=== PATIENT | male | born 2000 | race Caucasian/White ===

== ENCOUNTER 2020-10-17 08:42 | Emergency (ER) | payer OTHER, SELFPAY ==
[2020-10-17 08:53] VITALS: BP 156/87; PULSE 61; RESP 16; TEMP 36.5; O2SAT 100; BMI 27.3
--- NOTE | 2020-10-17 09:00 | ED.BACK ---
HPI - Back Pain/Injury General Chief Complaint: Back Pain/Injury Stated Complaint: Bruised ribs-pain/low back issue Time Seen by Provider: 10/17/20 08:50 Source: patient Limitations: no limitations History of Present Illness HPI Narrative: Patient is an otherwise healthy 20-year-old male who is here for evaluation of left lower rib/left side discomfort. He states that a couple days ago he and his friends were boxing. He states he took a shot to his left ribs and since that time he has had discomfort. He does have some bruising over the area. Does hurt to take a deep breath and also touch the area. No prior injuries. He also reports some dark colored stools and also some lower back discomfort. The lower back pain has been there for months. He has seen his primary provider. Has had x-rays which he told were unremarkable. Has been to chiropractic. Has also had OMT and also been to physical therapy. He states he has a baseline discomfort but then when he runs and works out the pain worsens. No urinary symptoms. No change of bowel habits. No radiation down into his legs. Review of Systems Constitutional Constitutional: Reports system reviewed and no additional complaints, except as documented Cardiovascular Cardiovascular: Reports as per HPI Respiratory Respiratory: Reports as per HPI Gastrointestinal Gastrointestinal: Reports as per HPI Genitourinary Genitourinary: Reports system reviewed and no additional complaints, except as documented Musculoskeletal Musculoskeletal: Reports as per HPI Integumentary/Breasts Skin/Breast: Reports as per HPI Neurologic Neurologic: Reports system reviewed and no additional complaints, except as documented Hematologic/Lymphatic On Anticoagulants: No Allergic/Immunologic Allergic/Immunologic: Reports system reviewed and no additional complaints, except as documented Patient History Medical History Healthy adult Social History Smoking Status: Never smoker Smoking Status: Never smoker alcohol intake frequency: 0-2 drinks per day Substance Use Type: does not use Exam Initial Vital Signs Initial Vital Signs: Vital Signs Temperature 97.7 F 10/17/20 08:53 Pulse Rate 61 10/17/20 08:53 Respiratory Rate 16 10/17/20 08:53 Blood Pressure 156/87 H 10/17/20 08:53 Pulse Oximetry 100 10/17/20 08:53 Const General: cooperative, comfortable and well developed [facility] Head: normal to inspection and normocephalic Eyes General: appearance normal, both eyes and all related structures Chest Other: Tenderness to palpation left lower anterior chest. Resp Effort & Inspection: normal respiratory effort Auscultation: clear to auscultation bilaterally Cardio Rate: regular rate Rhythm: regular rhythm GI Inspection: normal to inspection Palpation: soft and No tender Back/Spine/Pelvis Thoracic/Lumbar Spine: No paraspinal tenderness, No thoracic spinal tenderness and No lumbar spinal tenderness Skin Other: Patient with mild bruising left lower anterior chest. No crepitus felt over the area. Neuro General: patient alert, patient awake, patient oriented x3 and moves all extremities Extrem General: normal to inspection and capillary refill normal Psych Appearance: grossly normal and well kempt Course Orders Ordered: ED Orders 10/17/20 08:59 XR ribs LT min 3V w CXR1V Stat Vital Signs Vital signs: Vital Signs - 8 hr 10/17/20 08:53 Temperature 97.7 F Pulse Rate 61 Respiratory Rate 16 Blood Pressure 156/87 H Pulse Oximetry 100 MDM - Back Pain/Injury Imaging Data Rib x-rays: Radiologist's Impression: [address] [id number] ReportSigned Patient: Lyle Cheng#: [id number]: 2000Acct:[id number]/Sex: 20 / MDate of Service: 10/17/20Loc: EDAccession Number: [id number] Procedure: XR ribs LT min 3V w CXR1V Ordering Provider: Tavares Clark D.O. PROCEDURE: XR RIBS LT MIN 3V W CXR1V INDICATIONS: L lower anterior rib pain after injury TECHNIQUE: 2 views of the left ribs were acquired, along with a single view chest. COMPARISON: None. FINDINGS: Surgical changes and devices: None. Bones and chest wall: No fractures or dislocations. No suspicious bony lesions. Overlying soft tissues appear unremarkable. Lungs and pleura: No pleural effusions or pneumothorax. Lungs appear clear. Mediastinum: Mediastinal contours appear normal. Heart size is normal. IMPRESSION: No displaced left-sided rib fractures. Dictated by: Drew Rojo M.D. on 10/17/2020 at 9:25 Approved by: Drew Rojo M.D. on 10/17/2020 at 9:27 MDM Narrative Medical decision making narrative: Nontoxic appearing. No respiratory distress. X-ray shows no signs of rib fracture. Low suspicion for urgent surgical emergency with regard to his lower back. Also low concern for GI bleed given his symptoms of dark colored stools. Will have him contact his primary doctor regarding the lower back pain and the dark colored stools. We did discuss return precautions with regard to the rib contusion. He expressed understanding and agreement. Discharge Plan Departure Patient Disposition: Home Clinical Impression: Contusion of rib on left side, Lower back pain Instructions: DI for Low Back Pain, DI for Rib Contusion Activity Restrictions/Additional Instructions: I recommend that you contact your primary doctor to discuss further workup of your lower back pain. I also recommend that he stays active as possible. There were no fractures noted on the left ribs. Return to the emergency department for any new or worsening symptoms.
[2020-10-17 09:44] VITALS: BP 134/70; RESP 16; O2SAT 100
== END 2020-10-17 09:46 | disposition home or self-care (01) ==
PROVIDERS: Emergency Provider Emergency Medicine
DX: S20.20XA Contusion of thorax, unspecified, initial encounter (principal); M54.5 Low back pain; Y93.71 Activity, boxing
CPT/HCPCS: 71101; 99281; 99283

== ENCOUNTER → 2021-01-25 15:43 | Outpatient (CLI) | payer OTHER, SELFPAY ==
--- NOTE | 2021-01-25 | DI.MRI.S_ITS ---
PROCEDURE: MR LUMBAR SPINE WO CON INDICATIONS: Spondylosis without myelopathy or radiculopathy, l TECHNIQUE: Noncontrast sagittal T1 spin echo and T2 fast echo, sagittal STIR, axial T1 and T2 fast spin echo through the lumbar spine. In cases with scoliosis, additional coronal T2 fast spin echo may be performed. COMPARISON: [facility], CR, XR LUMBAR SPINE WITH OBLIQUES, 01/03/2021, 8:20. FINDINGS: Image quality: Excellent. Alignment and Curvature: There is normal bony alignment. Bone Marrow: Marrow is of normal overall signal. No acute vertebral body compression fractures. Spinal Cord: Conus medullaris terminates at the L1 level. Visualized cord demonstrates normal signal and size. Paraspinous Soft Tissues: No paravertebral masses. T12-L1: Normal appearance. L1-L2: Normal appearance. L2-L3: Normal appearance. L3-L4: Normal appearance. L4-L5: The disc height and disk signal are well-preserved. Mild generalized disc bulge is seen. There is a superimposed central disc protrusion. There is mild left-sided and no significant right-sided neural foraminal narrowing seen. Minimal to mild central canal narrowing is seen. L5-S1: Moderate loss of disc height is seen. Loss of disc signal is seen. Mild disc bulge is seen, with a central disc extrusion, with mild inferior migration of the disc material. There is a focal annular fissure seen posteriorly. Mild facet joint hypertrophy is seen. There is at least moderate left-sided and [id number] right-sided neural foraminal narrowing seen. Mild central canal narrowing is seen. 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 Dictated by: Weston Hudson M.D. on 01/25/2021 at 15:51 Approved by: Weston Hudson M.D. on 01/25/2021 at 15:54
== END ==
PROVIDERS: Referring Provider Physical Medicine & Rehabilitation Pain Medicine; Visit Provider Physical Medicine & Rehabilitation Pain Medicine
DX: M47.816 Spondylosis without myelopathy or radiculopathy, lumbar region (principal); M51.27 Other intervertebral disc displacement, lumbosacral region
CPT/HCPCS: 72148